=== PATIENT | male | born 1960 ===

== ENCOUNTER 2025-07-22 10:00 | Day surgery (SDC) | payer OTHER ==
[2025-07-17 13:20] VITALS: BP 142/76
[~2025-07-22] VITALS: Ht 175.3 cm; Wt 82.6 kg
[~2025-07-22 10:00] MED LIST: COZAAR50 MG PO; GLIPIZIDE XL5 MG PO; LIPITOR40 M1 PO; METFORMIN HCL500 M3 PO; TAMS0.4C PO
[2025-07-22] MEDS ORDERED: CEFTRIAXONE SODIUM 2,000 MG VIAL ONE (10:39)
[2025-07-22] MEDS ORDERED: ENOXAPARIN SODIUM 40 MG/0.4 ML SYRINGE SUBCUTANEO ONE (10:46)
[2025-07-22] MEDS ORDERED: METRONIDAZOLE/SODIUM CHLORIDE 500 MG/100 ML PIGGYBACK IV ONE (13:16)
[2025-07-22] MEDS ORDERED: SUGAMMADEX SODIUM 200 MG/2 ML VIAL IV ONE (13:16)
[2025-07-22] MEDS ORDERED: NEURONTIN300 MG PO (14:57)
[2025-07-22] MEDS ORDERED: PERCOCET 5-3251 EACH PO (14:57)
[2025-07-22] MEDS ORDERED: CELEBREX200MG PO (14:58)
[2025-07-22] MEDS ORDERED: POLY119PG PO (14:58)
== END 2025-07-22 19:25 | disposition home or self-care (01) ==
LOC: CIR.AMB 10:00
PROVIDERS: ATTEND Surgery
DX: K40.90 Unilateral inguinal hernia, without obstruction or gangrene, not specified as recurrent (principal)
CPT/HCPCS: 49650; C1781